=== PATIENT | female | born 1980 | race Two or more races ===

== ENCOUNTER 2024-08-04 09:19 | Emergency (ER) | payer OTHER ==
[~2024-08-04] VITALS: Ht 157.5 cm; Wt 65.8 kg
[2024-08-04] MEDS ORDERED: ORPHENADRINE CITRATE 30 MG/ML AMPUL IM STA (09:51)
[2024-08-04] MEDS ORDERED: KETOROLAC TROMETHAMINE 30 MG VIAL IM STA (09:51)
== END 2024-08-04 10:59 | disposition home or self-care (01) ==
LOC: ER 09:21
DX: M54.9 Dorsalgia, unspecified (principal); V89.2XXA Person injured in unspecified motor-vehicle accident, traffic, initial encounter
CPT/HCPCS: 72040; 72070; 96372; 99283; J1885; J3490